=== PATIENT | female | born 1995 | race Caucasian/White ===

== ENCOUNTER 2021-06-16 11:31 | Day surgery (SDC) | payer MEDICAID, SELFPAY ==
--- NOTE | 2021-06-07 07:58 | PCM.HP.BLA ---
History and Physical Date of Admission: 06/16/21 Pre-Op History and Physical ? HPI: The patient is a 25 year old female presenting for pre-operative visit. She is scheduled for Laparoscopic Bilateral salpingectomy, for desires sterilzation on 06/16/21- previous surgery canceled per patient choice due to weather. Procedure discussed along with risks, benefits and complications. Other alternatives discussed for management. Consent form signed? Yes. ? ? PAST MEDICAL HISTORY PAST MEDICAL HISTORY Diagnosis Date ? Encounter for insertion of mirena IUD 03/07/2017 ? Preeclampsia 2015 ? ? PAST SURGICAL HISTORY PAST SURGICAL HISTORY Procedure Laterality Date ? DELIVERY ONLY ? 11/13/15 ? , low transverse ? ? ? CURRENT MEDICATIONS Current Outpatient Medications Medication Sig Dispense Refill ? Lactobac no.41/Bifidobact no.7 (PROBIOTIC-10 ORAL) Take by mouth. ? ? ? Drospirenone-Ethinyl Estradiol (MICHELE, 28,) 3-0.03 mg per tablet Take 1 tablet by mouth once daily. 84 tablet 3 ? No current facility-administered medications for this visit. ? ? ALLERGIES: Seasonal Allergies ? PERSONAL HISTORY: SOCIAL HISTORY Social History ? Tobacco Use ? Smoking status: Former Smoker ? ? Quit date: 11/12/2014 ? ? Years since quittin.5 ? Smokeless tobacco: Never Used ? Tobacco comment: quit 06/24/18 Substance Use Topics ? Alcohol use: No ? Drug use: No ? FAMILY HISTORY: FAMILY HISTORY FAMILY HISTORY Problem Relation Age of Onset ? Cancer Father ? ? prostate ? Breast Cancer Paternal Grandmother ? ? ? REVIEW OF SYMPTOMS: negative except as noted above PHYSICAL EXAMINATION: ? VITALS: Blood pressure 104/66, height 5' 6.5 (1.689 m), weight 186 lb (84.4 kg), last menstrual period 03/13/2021. ? GENERAL: The patient is well nourished, well hydrated in no acute distress. , The patient is oriented to time, place, and person. NECK: Supple. No lynphadenopathy, normal thyroid, no thyromegaly. LUNGS: Clear to auscultation bilaterally. no wheezes, rhonchi or rales HEART: Regular rate and rhythm, Normal heart sounds and No murmurs or gallops ? IMPRESSION: 25yo desires sterilization ? PLAN: Laparoscopic Bilateral salpingectomy ? Pt has been counseled on risks/benefits and alternatives of surgery including but not limited to anesthesia, bleeding, infection, injury to pelvic structures including bowel, bladder, ureters and vessels. Pt wishes to proceed with surgery at this time. RISK OF REGRET REVIEWED- declines reversible contraception. ? PRE OP and post OP instructions reviewed. ? I have reviewed and updated past medical and surgical history, medications and allergies Allie Yang MD ?8:42 AM
--- NOTE | 2021-06-16 | FALS_PTH ---
PATIENT: SHERIDAN TRIANA LOC: [facility] [place] U#:[id number] AGE/SX: 25/F ROOM: RE06/16/[address]: Dr. Allie Rodriguez, MDDOB: 1995 BED: DIS: 06/16/2021 SPEC #: [id number] RECD: 06/17/21 07:01 STATUS: JOSE ALBERTO CARRINGTON #: [id number] CLARISSA: 06/16/21 00:[address]: Allie Rodriguez DEPT: SURGICAL PATHOLOGY RECD BY: Nilo Santana ENTERED: 06/17/21 10:07 SP TYPE: FALL TUBES OTHR DR: No Primary Care Phys Tissues: Fallopian tube Procedures: Surgery Specimen Level II HEADER OPERATION: Laparoscopic salpingectomy, chromotubation PRE-OP DIAGNOSIS: Sterilization TISSUE SUBMITTED: Bilateral fallopian tubes MICROSCOPIC DIAGNOSIS Right and left fallopian tubes, bilateral salpingectomies: Complete cross-sections of fallopian tubes with no pathologic change. AM:bebe 06/20/2021 MICROSCOPIC DESCRIPTION Slides are reviewed. GROSS DESCRIPTION Received in fixative is one container labeled with the patient's name and designated bilateral fallopian tubes. The specimen consists of bilateral fallopian tubes including fimbrial ends measuring 5.5 cm in length and 0.2 cm in diameter and 5 cm in length and 0.5 cm in diameter. The fimbrial end of one of the fallopian tubes is detached. The fallopian tubes are not identified as right or left. Sections reveal unremarkable cut surfaces. Architectural Modeler sections are submitted in two cassettes with each cassette containing one fallopian tube. / CITLALY:bebe 06/17/2021 TC:4 CPT: 32279 x2
[2021-06-16 12:27] LABS: Internal QC Validated? YES +Cl - CLEAR BKGD; Pregnancy, Urine Negative Negative
[2021-06-16 12:36] VITALS: BP 107/60; PULSE 76; RESP 16; TEMP 36.6; O2SAT 100; BMI 29.3
[2021-06-16] MEDS: Lactated Ringers 1,000 ML 15 ML IV (12:43)
--- NOTE | 2021-06-16 12:49 | OP.PCM_ITS ---
Problems Associated Problem List Diagnoses (1) Encounter for sterilization: Report of Operation Date of Procedure: 06/16/21 Pre-Operative Diagnosis: desires sterilization Post-Operative Diagnosis: same Surgery/Procedure Performed:: laparoscopic bilateral salpingectomy Description of Surgical Findings:: bilateral ovaries normal. Right tube adherant to Pelvic side wall- Dissected. Chrompertubation done to ensure complete resection of tube. NO DYE NOTED to be expelled from UTERUS Surgeon: Allie Rodriguez Type of Anesthesia: General and Local Special Medications: 0.5%marcaine Specimen's removed: bilateral fallopian tubes Drains: none Estimated Blood Loss (mL): 5cc Fluids Replaced: 900 Description of Procedure: After informed consent was obtained patient was taken to the operating room she was placed in supine position she was given anesthesia. She was then placed in the [facility] stirrups and she was prepped and draped in normal sterile fashion. Bladder was drained prior to the start of procedure. At this time attention was turned to the vaginal portion where weighted speculum placed at posterior fornix vagina single-tooth tenaculum was used to gently grasp the internal the cervix. uterus was gently sounded to approximately cm. Uterine manipulator was placed without difficulty. Legs then placed in parallel with the abdomen the tenaculum and the weighted speculum were removed. 2 towel clamps were placed at level of umbilicus. Marcaine was injected infraumbilical and a small incision was made. The 5 mm trocar was placed under direct visualization. CO2 gas was used to insufflate the intra- abdominal cavity. Upon inspection no gross abnormalities appreciated- the uterus was normal, ovaries normal Right tube adherent to side wall. At this time then the LLQ and RLQ ports were placed First Marcaine was injected and small incision was made a knife and the 5 mm trocars were placed. Right tube was dissected from side wall- At this time then tubes were traced back to the fimbriated ends. Enseal was used to coagulate and ligate along mesosalpynx bilaterally until tubes removed completely. Methylene blue diluted with NS was injected in Manipulator- no spillage noted in cavity- Daphnie placed over right pelvic side wall. Good hemostasis was appreciated. At this time procedure was deemed complete successful. The gas was desufflated on from the intra-abdominal cavity. The trochars were removed. Skin was closed using 4-0 Monocryl in a subcutaneous fashion. Dermabond glue was placed. Instrument lap and needle counts were correct ?2. The uterine manipulator was removed. Vaginal sweep was performed it was negative. There were no complications anticipated normal postoperative course for this patient. Grafts/Implants Used: none Procedure Start Time: 13:14 Procedure Stop Time: 13:37 Complications none Admit VTE Documentation VTE Present on Admission: Yes VTE Mechan Device Prophylaxis: SCD's VTE Pharm Prophylaxis ordered?: No Reason prophylaxis not ordered:: Procedure Not Indicated
--- NOTE | 2021-06-16 12:49 | EX.PCM.DISCH ---
Discharge Instructions Procedure Other Diet Discharge Diet: No restrictions Activity May resume sexual activity in: 2 weeks Lifting Restrictions: 20-25 lbs Dressing / Incision Call your doctor if your incision/area has: Continuous Slow Oozing, Sudden Increased Bleeding, Increased Pain/ Swelling, Increased Redness, Foul Smelling Discharge and Swelling at the incision site Call your doctor if you observe: Fever of 101 or Higher, Inability to urinate, Inability to have a bowel movement, Using more than 1 pad per hour and Uncontrolled pain Additional Dressing/Incision Instructions:: You have skin glue over your incision sites, do not pick off. You may shower and let the soap and water run over the incision sites and dab dry. Follow Up Care Please Follow Up With: Allie Rodriguez MD When: 1-2 weeks post OP if you need an appointment please call [phone] Test Results: Test results from this visit will be discussed in further detail at your follow-up appointment, if applicable. Discharge Plan Admission Attending Provider: Allie Rodriguez Primary Care Provider: Care Physician,No Primary Discharge Orders/Prescriptions Prescriptions: No Action drospirenone-ethinyl estradiol [LUZ (28)] 3-0.02 mg Tablet 1 tab PO DAILY RF: 0 biotin 5 mg Tablet 5 mg PO DAILY RF: 0 Probiotic 3 billion cell Capsule 3,000 mmu cells PO DAILY RF: 0
[2021-06-16 12:57] LABS: Hematocrit 41.1 % (37-47); Hemoglobin 13.9 g/dL (12.0-15.0); Mean Corp Hgb Conc 33.8 g/dL (32-36); Mean Corpuscular Hgb 28.6 pg (27.0-32.0); Mean Corpuscular Volume 84.6 fL (81-99); Mean Platelet Vol. 9.1 fl (6.2-12.0); Platelet Count 338 K/mm3 (150-450); RBC Distribution Width CV 12.1 % (11.6-14.6); RBC Distribution Width SD 36.6 fl (35.1-43.9); Red Blood Count 4.86 M/mm3 (4.2-5.4); White Blood Count 8.9 K/mm3 (4.4-11.0)
[2021-06-16] MEDS: Bupivacaine Mpf 0.5% 30 ML VIAL (13:17)
[2021-06-16 13:55] VITALS: BP 107/60; BP 111/68; PULSE 85; RESP 18; TEMP 36.5; O2SAT 94
[2021-06-16 14:00] VITALS: BP 107/60; BP 114/64; PULSE 79; RESP 18; O2SAT 97
[2021-06-16 14:15] VITALS: BP 107/60; BP 109/74; PULSE 68; RESP 18; O2SAT 99
[2021-06-16 14:16] VITALS: BP 107/60; BP 109/76; PULSE 65; RESP 18; TEMP 36.9; O2SAT 100
[2021-06-16] MEDS: HYDROcodone Bitartrate/Apap 5/325 Tablet PO (14:51)
[2021-06-16 15:20] VITALS: BP 107/60; BP 109/64; PULSE 71; RESP 16; TEMP 36.6; O2SAT 100
== END 2021-06-16 23:59 | disposition home or self-care (01) ==
LOC: SDC 11:34 → AC 11:36
PROVIDERS: Referring Provider Obstetrics & Gynecology; Visit Provider Obstetrics & Gynecology
PROC: (CPT 58661; principal; 2021-06-16 12:50)
DX: Z30.2 Encounter for sterilization (principal); Z87.891 Personal history of nicotine dependence
CPT/HCPCS: 58661; 00840; 81025; 85027; 88302; J7120; C1760; J2405; Q9968